=== PATIENT | male | born 1985 | race African-American/Black ===

== ENCOUNTER 2020-10-11 22:17 | Emergency (ER) | payer OTHER ==
[~2020-10-11] VITALS: Ht 160 cm; Wt 77.6 kg
[2020-10-11] MEDS ORDERED: FAMOTIDINE INJ 20MG/2ML VIAL (S0028 PER 1) IVP ONE (22:35)
[2020-10-11 23:32] LABS: BASO % 0.4 % (0.0-1.0); EOS # 0.2 10^3/uL (0.0-0.5); EOS % 1.4 % (0.0-3.0); HEMATOCRIT 41.8 % (42.0-52.0); HEMOGLOBIN 12.6 g/dl (13.5-17.5); LYMPH # 2.7 10^3/uL (1.5-5.0); LYMPH % 25.7 % (24.0-44.0); MEAN CORPUSCULAR HEMOGLOBIN 20.8 pg (27.0-33.0); MEAN CORPUSCULAR HGB CONC 30.1 g/dl (32.0-36.5); MONO # 0.7 10^3/uL (0.0-0.8); MONO % 6.5 % (2.0-8.0); NEUTROPHILS % 65.6 % (36.0-66.0); PLATELET COUNT, AUTOMATED 311 10^3/uL (150-450); RED BLOOD COUNT 6.06 10^6/uL (4.30-6.10); WHITE BLOOD COUNT 10.7 10^3/uL (4.0-10.0)
--- NOTE | 2020-10-11 23:41 | REPVR ---
PROCEDURE INFORMATION: Exam: XR Chest Exam date and time: 10/11/20 (10:38pm) Age: 35 years old Clinical indication: Dyspnea and cough TECHNIQUE: Imaging protocol: Portable CXR Views: 1 view COMPARISON: No relevant prior studies available FINDINGS: No prior chest films are available for comparison. Normal heart size. No significant vascular congestion. No focal infiltrates. No pleural effusions. No pneumothorax. IMPRESSION: No acute findings. Electronically signed by: Zee Banuelos On 10/11/2020 23:40:34 PM
[2020-10-12 00:01] LABS: BLOOD UREA NITROGEN 20 MG/DL (7-18); CALCIUM LEVEL 7.7 MG/DL (8.5-10.1); CARBON DIOXIDE LEVEL 25 MEQ/L (21-32); CHLORIDE LEVEL 111 MEQ/L (98-107); CREATININE FOR GFR 0.92 MG/DL (0.70-1.30); GLOMERULAR FILTRATION RATE > 60.0 (>60); GLUCOSE, FASTING 132 MG/DL (70-100); POTASSIUM SERUM 4.1 MEQ/L (3.5-5.1); SODIUM LEVEL 143 MEQ/L (136-145)
[2020-10-12] MEDS ORDERED: EPIP0.3I2 IM (02:49)
[2020-10-12 03:00] VITALS: BP 122/76
--- NOTE | 2020-10-12 19:50 | ECGEPIP ---
[facility] - ED Test Date: 2020-10-11 Pat Name: SHANDA ENNIS Department: Room: - Gender: Male Contract Assistant: ART : 1985 Requested By: FAIZA Cervantes Order Number: [id number] Reading MD: Blaise López Measurements Intervals [place] Rate: 68 P: 55 ND: 154 QRS: -4 QRSD: 102 T: 21 QT: 440 QTc: 467 Interpretive Statements Normal sinus rhythm Comparison tracing not on file Baseline artifact Electronically Signed on 10-12-2020 19:50:14 EDT by Blaise López
== END 2020-10-12 03:08 | disposition home or self-care (01) ==
LOC: M ED 22:17
DX: R22.0 Localized swelling, mass and lump, head (principal); T78.40XA Allergy, unspecified, initial encounter; Z91.013 Allergy to seafood

== ENCOUNTER 2022-08-05 01:54 | Emergency (ER) | payer OTHER ==
[~2022-08-05] VITALS: Ht 160 cm; Wt 80.8 kg
[~2022-08-05 01:54] MED LIST: EPIP0.3I2 IM
[2022-08-05] MEDS ORDERED: ACETAMINOPHEN TAB 650MG DOSE (2X325MG) PO ONE (02:15)
[2022-08-05] MEDS ORDERED: IBUPROFEN 600MG TAB PO ONE (02:25)
[2022-08-05 02:49] LABS: BASO # 0.1 10^3/uL (0.0-0.2); BASO % 0.3 % (0.0-1.0); EOS # 0.1 10^3/uL (0.0-0.5); EOS % 0.4 % (0.0-3.0); HEMATOCRIT 45.4 % (42.0-52.0); HEMOGLOBIN 14.3 g/dl (13.5-17.5); LYMPH # 1.7 10^3/uL (1.5-5.0); LYMPH % 11.4 % (24.0-44.0); MEAN CORPUSCULAR HEMOGLOBIN 21.1 pg (27.0-33.0); MEAN CORPUSCULAR HGB CONC 31.5 g/dl (32.0-36.5); MEAN CORPUSCULAR VOLUME 67.1 fl (80.0-96.0); MONO # 1.4 10^3/uL (0.0-0.8); MONO % 9.7 % (2.0-8.0); NEUTROPHILS # 11.3 10^3/uL (1.5-8.5); NEUTROPHILS % 77.7 % (36.0-66.0); PLATELET COUNT, AUTOMATED 274 10^3/uL (150-450); RED BLOOD COUNT 6.77 10^6/uL (4.30-6.10); WHITE BLOOD COUNT 14.5 10^3/uL (4.0-10.0)
[2022-08-05 03:14] LABS: ALBUMIN 3.8 G/DL (3.2-5.2); ALKALINE PHOSPHATASE 60 U/L (46-116); ALT/SGPT 27 U/L (7.0-40); AST/SGOT 22 U/L (<34); BILIRUBIN,TOTAL 1.8 MG/DL (0.3-1.2); BLOOD UREA NITROGEN 20 MG/DL (9-23); CALCIUM LEVEL 8.3 MG/DL (8.5-10.1); CARBON DIOXIDE LEVEL 25 MMOL/L (20-31); CHLORIDE LEVEL 102 MMOL/L (98-107); CREATININE FOR GFR 1.38 MG/DL (0.70-1.30); GLOMERULAR FILTRATION RATE > 60.0 (>60); GLUCOSE, FASTING 96 MG/DL (60-100); SODIUM LEVEL 136 MMOL/L (136-145)
[2022-08-05 03:16] LABS: RSV AMPLIFICATION NEGATIVE (NEGATIVE)
[2022-08-05] MEDS ORDERED: AMOXICILLIN 500 MG CAP PO ONE (04:25)
[2022-08-05] MEDS ORDERED: AMOX500C PO (04:25)
[2022-08-05 04:43] VITALS: BP 130/73
== END 2022-08-05 04:44 | disposition home or self-care (01) ==
LOC: M ED 01:54
DX: J02.0 Streptococcal pharyngitis (principal)

== ENCOUNTER 2022-08-10 15:50 | Emergency (ER) | payer OTHER ==
[~2022-08-10] VITALS: Ht 160 cm; Wt 79.7 kg
[~2022-08-10 15:50] MED LIST changes: +AMOX500C PO
[2022-08-10] MEDS ORDERED: FLUORESCEIN OPHTH 1MG STRIP OS ONE (16:55)
[2022-08-10] MEDS ORDERED: TETRACAINE 0.5% OPHTH SOLN 4ML OS ONE (16:55)
[2022-08-10] MEDS ORDERED: AK-T0.3S OS (17:12)
[2022-08-10 17:20] VITALS: BP 114/74
== END 2022-08-10 17:24 | disposition home or self-care (01) ==
LOC: M ED 15:50
DX: H57.12 Ocular pain, left eye (principal); Z91.013 Allergy to seafood

== ENCOUNTER → 2022-11-04 | Outpatient (CLI) | payer OTHER ==
[~2022-11-04] MED LIST changes: +TOBR0.3S30 OS
== END ==
LOC: M RAD 13:24
PROVIDERS: ATTEND Nurse Practitioner Family
DX: E05.90 Thyrotoxicosis, unspecified without thyrotoxic crisis or storm (principal)
CPT/HCPCS: 78012; A9516

== ENCOUNTER → 2022-12-12 | Outpatient (CLI) | payer OTHER | LOC: M RAD 07:48 | PROVIDERS: ATTEND Internal Medicine Endocrinology, Diabetes & Metabolism | DX: E05.90 Thyrotoxicosis, unspecified without thyrotoxic crisis or storm (principal) | CPT/HCPCS: 79005; A9517 ==

== ENCOUNTER → 2024-10-05 | Outpatient (CLI) | payer OTHER ==
[2024-10-05 16:21] LABS: FREE T4 1.32 NG/DL (0.89-1.76); THYROID STIMULATING HORMONE 15.869 uIU/ML (0.55-4.78)
== END ==
LOC: M LAB 15:19
PROVIDERS: ATTEND Nurse Practitioner Family
DX: E89.0 Postprocedural hypothyroidism (principal)

== ENCOUNTER → 2024-11-29 | Outpatient (CLI) | payer OTHER ==
[2024-11-29 12:24] LABS: FREE T4 1.19 NG/DL (0.89-1.76)
== END ==
LOC: M LAB 11:03
PROVIDERS: ATTEND Nurse Practitioner Family
DX: E89.0 Postprocedural hypothyroidism (principal)